=== PATIENT | female | born 1945 | race Caucasian/White ===

== ENCOUNTER 2016-05-25 20:01 | Emergency (ER) | payer OTHER ==
[~2016-05-25] VITALS: Ht 162.6 cm; Wt 75.1 kg
[~2016-05-25 20:01] MED LIST: ALBUTEROL SULF8.5 GM IH; ALTACE5 MG PO; ASPIR-MOX IB C325 MG PO; ASPIRIN EC325 MG PO; FIORICET 50-301 EACH PO; FLOVENT 44120 INHALA IH; NOVOLOG100 UNIT/3 SQ; PERCOCET 5/31 TABLET PO; PROAIR HFA8.5 GM IH; ULTRAM50 MG PO; ZOFRAN4 MG PO
[2016-05-25 20:37] LABS: HEMATOCRIT 44.1 % (36.0-46.0); MCH 27.6 PG (29.0-34.0); MCHC 31.5 G/DL (30.0-36.0); MCV 87.7 FL (83-99); MEAN PLAT.VOLUME 10.2 uM^3 (9.5-12.4); PLATELET COUNT 197 K/uL (156-360); RBC DIS.WIDTH-CV 12.3 % (11.8-14.6); RBC DIS.WIDTH-SD 39.5 % (39-53); RED BLOOD COUNT 5.03 M/uL (3.80-5.20); WHITE BLOOD COUNT 8.3 K/uL (4.1-10.2)
[2016-05-25 20:45] LABS: ADD MIUA? YES; BILIRUBIN NEGATIVE; BLOOD NEGATIVE; COLOR YELLOW ((YELLOW)); GLUCOSE (STRIP) >=500; KETONES 5; LEUKOCYTES SMALL; NITRITE NEGATIVE; PROTEIN (STRIP) NEGATIVE; SPECIFIC GRAVITY 1.024 (1.000-1.030); UROBILINOGEN 0.2 MG/DL (0.2-1.0)
[2016-05-25 20:48] LABS: CHLORIDE 103 mEq/L (99-109); POTASSIUM 3.8 mEq/L (3.7-5.4); SODIUM 142 mEq/L (136-147)
[2016-05-25 20:50] LABS: GLUCOSE 212 mg/dL (70-99)
[2016-05-25 20:51] LABS: ANION GAP 12 MEQ/L (2-14)
[2016-05-25 20:52] LABS: TOTAL BILIRUBIN 0.6 mg/dL (0.0-1.0)
[2016-05-25 20:53] LABS: ALKALINE PHOSPHATASE 54 IU/L (3-129)
[2016-05-25 20:54] LABS: GFR ESTIMATE (CALCULATED) 52 mL/min/
[2016-05-25 20:55] LABS: UREA NITROGEN (BUN) 11 mg/dL (9-23)
[2016-05-25 20:55] LABS: BACTERIA NONE SEEN /HPF; EPITHELIAL CELLS RARE /HPF; HYALINE CASTS 0-5 /LPF; MUCUS TRACE /LPF; RED BLOOD CELLS 0-5 /HPF (0-5); UCUL ADDED? NO; WHITE BLOOD CELLS 0-5 /HPF (0-5)
[2016-05-25 21:43] LABS: TROP-I INTERPRETATION NEGATIVE; TROPONIN-I 0.02 ng/mL (0.0-0.30)
[2016-05-25] MEDS ORDERED: ZANTAC150 MG PO (23:03)
[2016-05-25 23:34] VITALS: BP 225/105
== END 2016-05-25 23:37 | disposition home or self-care (01) ==
LOC: EME 20:01
DX: K29.00 Acute gastritis without bleeding (principal); I10 Essential (primary) hypertension; Z91.14 Patient's other noncompliance with medication regimen; Z87.891 Personal history of nicotine dependence; Z98.1 Arthrodesis status
CPT/HCPCS: 74177; 80053; 81003; 84484; 85027; 93005; 99281; 99285; J7030

== ENCOUNTER 2016-10-13 01:51 | Observation (INO) | payer OTHER ==
[~2016-10-13] VITALS: Ht 162.6 cm; Wt 69.2 kg
[~2016-10-13 01:51] MED LIST changes: +ZANTAC150 MG PO
[2016-10-13 02:55] LABS: ADD MIUA? NO; BILIRUBIN NEGATIVE; BLOOD NEGATIVE; COLOR STRAW ((YELLOW)); GLUCOSE (STRIP) 50; KETONES NEGATIVE; LEUKOCYTES NEGATIVE; NITRITE NEGATIVE; PROTEIN (STRIP) NEGATIVE; SPECIFIC GRAVITY 1.005 (1.000-1.030); UCUL ADDED? NO; UROBILINOGEN 0.2 MG/DL (0.2-1.0)
[2016-10-13 03:11] LABS: HEMATOCRIT 45.6 % (36.0-46.0); MCH 28.3 PG (29.0-34.0); MCHC 32.5 G/DL (30.0-36.0); MCV 87.2 FL (83-99); MEAN PLAT.VOLUME 10.3 uM^3 (9.5-12.4); PLATELET COUNT 173 K/uL (156-360); RBC DIS.WIDTH-CV 12.3 % (11.8-14.6); RBC DIS.WIDTH-SD 39.5 % (39-53); RED BLOOD COUNT 5.23 M/uL (3.80-5.20); WHITE BLOOD COUNT 6.8 K/uL (4.1-10.2)
[2016-10-13 03:19] LABS: CHLORIDE 104 mEq/L (99-109); POTASSIUM 3.4 mEq/L (3.7-5.4); SODIUM 144 mEq/L (136-147)
[2016-10-13 03:22] LABS: GLUCOSE 181 mg/dL (70-99)
[2016-10-13 03:23] LABS: ANION GAP 12 MEQ/L (2-14)
[2016-10-13 03:24] LABS: TOTAL BILIRUBIN 0.7 mg/dL (0.0-1.0)
[2016-10-13 03:25] LABS: ALKALINE PHOSPHATASE 54 IU/L (3-129); GFR ESTIMATE (CALCULATED) > 59 mL/min/
[2016-10-13 03:26] LABS: UREA NITROGEN (BUN) 7 mg/dL (9-23)
[2016-10-13 03:29] LABS: LIPASE 44 U/L (1.0-51.0)
[2016-10-13 03:52] LABS: TROP-I INTERPRETATION NEGATIVE; TROPONIN-I 0.03 ng/mL (0.0-0.30)
[2016-10-13 06:57] VITALS: BP 192/84
[2016-10-13 07:00] VITALS: BP 223/97
[2016-10-13 08:43] LABS: POINT-OF-CARE METER ID UU13113700
== END 2016-10-13 09:04 | disposition left against medical advice (07) ==
LOC: EME → EDBD 01:51 → EDOF 05:08 → ENRESERV 05:10 → 5WEST 07:03
PROVIDERS: Emergency Medicine; Internal Medicine
DX: J44.0 Chronic obstructive pulmonary disease with (acute) lower respiratory infection (principal); J20.9 Acute bronchitis, unspecified; J44.1 Chronic obstructive pulmonary disease with (acute) exacerbation; I16.0 Hypertensive urgency; I10 Essential (primary) hypertension; E11.65 Type 2 diabetes mellitus with hyperglycemia; E87.6 Hypokalemia; I44.7 Left bundle-branch block, unspecified; F17.200 Nicotine dependence, unspecified, uncomplicated; Z88.8 Allergy status to other drugs, medicaments and biological substances; Z98.1 Arthrodesis status; Z90.49 Acquired absence of other specified parts of digestive tract; Z91.19 Patient's noncompliance with other medical treatment and regimen
CPT/HCPCS: 70450; 71020; 71250; 80053; 81003; 82948; 83690; 84484; 85027; 87040; 93005; 94640; 99281; 99285; G0378; J0360; J1815; J2930

== ENCOUNTER 2016-12-08 23:10 | Observation (INO) | payer OTHER, MEDICARE ==
[~2016-12-08] VITALS: Ht 162.6 cm; Wt 64.7 kg
[2016-12-08 23:47] LABS: EOSINOPHIL (%) 1.7 % (0-5); EOSINOPHIL COUNT 0.1 K/uL (0-0.3); HEMATOCRIT 46.4 % (36.0-46.0); IMMATURE GRANULOCYTE (%) 0.3 % (0.0-0.7); INSTRUMENT ABS NEUTROPHIL CT 4.5 K/uL; LYMPHOCYTE COUNT 2.2 K/uL (1.0-2.8); MCH 27.8 PG (29.0-34.0); MCHC 31.9 G/DL (30.0-36.0); MCV 87.1 FL (83-99); MEAN PLAT.VOLUME 11.2 uM^3 (9.5-12.4); MONOCYTE COUNT 0.4 K/uL (0-0.8); NEUTROPHIL (%) 61.7 % (45-76); NEUTROPHIL COUNT 4.5 K/uL (1.8-6.4); PLATELET COUNT 184 K/uL (156-360); RBC DIS.WIDTH-CV 12.5 % (11.8-14.6); RBC DIS.WIDTH-SD 39.8 % (39-53); RED BLOOD COUNT 5.33 M/uL (3.80-5.20); WHITE BLOOD COUNT 7.2 K/uL (4.1-10.2)
[2016-12-08 23:58] LABS: CHLORIDE 101 mEq/L (99-109); POTASSIUM 4.1 mEq/L (3.7-5.4); SODIUM 138 mEq/L (136-147)
[2016-12-09] LABS: GLUCOSE 142 mg/dL (70-99)
[2016-12-09 00:01] LABS: ANION GAP 10 MEQ/L (2-14)
[2016-12-09 00:04] LABS: GFR ESTIMATE (CALCULATED) > 59 mL/min/; UREA NITROGEN (BUN) 8 mg/dL (9-23)
[2016-12-09 00:06] LABS: TROP-I INTERPRETATION NEGATIVE; TROPONIN-I 0.03 ng/mL (0.0-0.30)
[2016-12-09 03:25] LABS: ADD MIUA? NO; BILIRUBIN NEGATIVE; BLOOD NEGATIVE; COLOR STRAW ((YELLOW)); GLUCOSE (STRIP) NEGATIVE; KETONES NEGATIVE; LEUKOCYTES NEGATIVE; NITRITE NEGATIVE; PROTEIN (STRIP) NEGATIVE; SPECIFIC GRAVITY 1.004 (1.000-1.030); UCUL ADDED? NO; UROBILINOGEN 0.2 MG/DL (0.2-1.0)
[2016-12-09 04:13] VITALS: BP 144/103
[2016-12-09 05:42] VITALS: BP 133/62
[2016-12-09 08:50] VITALS: BP 132/67
[2016-12-09 11:46] VITALS: BP 103/55
[2016-12-09] MEDS ORDERED: LABETALOL HCL200 MG PO (14:38)
[2016-12-09] MEDS ORDERED: FAMOTIDINE20 MG PO (14:38)
== END 2016-12-09 15:39 | disposition home or self-care (01) ==
LOC: EME 23:10 → EDOF 12-09 01:58 → ENRESERV 12-09 02:06 → 5WEST 12-09 03:53
PROVIDERS: Emergency Medicine; Hospitalist
DX: I16.0 Hypertensive urgency (principal); I10 Essential (primary) hypertension; F03.90 Unspecified dementia, unspecified severity, without behavioral disturbance, psychotic disturbance, mood disturbance, and anxiety; R51 Headache; E78.5 Hyperlipidemia, unspecified; I25.10 Atherosclerotic heart disease of native coronary artery without angina pectoris; Z90.49 Acquired absence of other specified parts of digestive tract; Z98.1 Arthrodesis status; F17.210 Nicotine dependence, cigarettes, uncomplicated; J44.9 Chronic obstructive pulmonary disease, unspecified; T46.5X6A Underdosing of other antihypertensive drugs, initial encounter; Z91.14 Patient's other noncompliance with medication regimen; M79.7 Fibromyalgia; E11.9 Type 2 diabetes mellitus without complications; Z88.8 Allergy status to other drugs, medicaments and biological substances
CPT/HCPCS: 70450; 71010; 80048; 81003; 84484; 85025; 85610; 85730; 93005; 94640; 99202; 99281; 99285; G0378; J0360; J7030